=== PATIENT | female | born 1940 | race Caucasian/White ===

== ENCOUNTER 2018-10-20 16:57 | Inpatient (IN) | payer MEDICARE ==
[~2018-10-20] VITALS: Ht 162.6 cm; Wt 63.5 kg
[2018-10-20] MEDS ORDERED: Percocet 5-3251 EACH PO (17:08)
[2018-10-20] MEDS ORDERED: ATOR40TA PO (17:08)
[2018-10-20] MEDS ORDERED: OLME20 PO (17:08)
[2018-10-20] MEDS ORDERED: METO25ER PO (17:08)
[2018-10-20] MEDS ORDERED: GABA100 PO (17:08)
[2018-10-20 18:16] LABS: BASOPHILS ABSOLUTE AUTO 0.04 K/mm3 (0.00-0.23); BASOPHILS PERCENT AUTO 1 % (0-2); EOSINOPHILS ABSOLUTE AUTO 0.22 K/mm3 (0.00-0.68); EOSINOPHILS PERCENT AUTO 3 % (0-6); Hematocrit 30.2 % (33.0-51.0); Hemoglobin 9.6 g/dL (11.5-16.0); IMMATURE GRAN ABSOLUTE AUTO 0.04 K/mm3 (0.00-0.10); IMMATURE GRAN PERCENT AUTO 1 % (0-1); LYMPHOCYTES ABSOLUTE AUTO 0.55 K/mm3 (0.84-5.20); LYMPHOCYTES PERCENT AUTO 7 % (21-46); MONOCYTES ABSOLUTE AUTO 0.67 K/mm3 (0.16-1.47); MONOCYTES PERCENT AUTO 8 % (4-13); Mean Corpuscular HGB 35.3 pg (26.0-34.0); Mean Corpuscular HGB Conc 31.8 g/dL (31.5-36.5); Mean Corpuscular Volume 111 fL (80-100); Mean Platelet Volume 10.3 fL (9.1-12.4); NEUTROPHILS ABSOLUTE AUTO 6.55 K/mm3 (1.96-9.15); NEUTROPHILS PERCENT AUTO 81 % (41-73); Platelet Count 202 K/mm3 (150-400); RDW Coefficient Variation 15.3 % (11.7-14.2); RDW Standard Deviation 62.1 fL (35.1-46.3); Red Blood Cell Count 2.72 M/mm3 (3.80-5.20); White Blood Cell Count 8.07 K/mm3 (4.00-11.30)
[2018-10-20] MEDS ORDERED: Calcium Acetat667 MG PO (18:53)
[2018-10-20] MEDS ORDERED: Aspir 8181 MG PO (18:54)
[2018-10-20 18:55] LABS: Albumin, Blood 3.2 g/dL (3.4-5.0); Albumin/Globulin Ratio 0.9 (0.8-1.8); Bilirubin, Total 0.8 mg/dL (0.1-1.0); Calcium, Blood 9.4 mg/dL (8.5-10.1); Creatinine, Blood 3.72 mg/dL (0.40-1.00); Globulin, Blood 3.5 g/dL (2.2-4.0); Potassium, Blood 4.6 mmol/L (3.5-5.5); Total Protein, Blood 6.7 g/dL (6.4-8.2)
[2018-10-20 22:40] LABS: Source, Urine Catheter
[2018-10-20 22:42] LABS: Bilirubin, Urine Neg (Neg); Blood, Urine Neg (Neg); Glucose Qualitative, Urine Neg (Neg); Ketones, Urine Neg (Neg); Leukocyte Esterase, Urine 1+ (Neg); Nitrite, Urine Neg (Neg); Protein, Urine 3+ (Neg); Specific Gravity, Urine 1.015 (1.003-1.022); Urobilinogen, Urine NORM (Normal)
[2018-10-20 22:47] LABS: Appearance, Urine Clear (Clear); Color, Urine Yellow (P-Yellow)
[2018-10-20 22:49] LABS: Amorphous Light (0-Heavy); Bacteria Rare /hpf; Red Blood Cells, Urine Not Seen /hpf (0-2); Squamous Epithelial Cells Not Seen /hpf (Few)
--- NOTE | 2018-10-21 04:20 | NUR ---
PATIENT ADMITTED AWAKE AND COMPLAINING OF PAIN IN THE LT HIP ONLY WHEN MOVED. UNABLE TO ASSESS PATIENTS POSTERIOR. 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 sHE WAS SCHEDULED TO HAVE A NEW FISTULA IN HER RT ARM TODAY IN [facility], i NOTIFIED THEIR NURSING PRICER TO GET HER OFF OF THEIR SCHEDULE. pERMACATH IN PT'S UPPER RT CHEST WALL. DIALYSIS ON 10/19/18- SUNDAY, HER NORMAL SCHEDULE IS M, W, F. SHE HAS BEEN ON ANTIBIOTICS FOR A SMALL HEALED WOUND ON HER LT 5TH TOE THAT RUBBED ON HER SHOE. LT LOWER EXTREMITY WITH REDDENED/BRIGHT PINK HOT, EDEMATOUS SKIN. PATIENT STATED THAT HER LEG HAS LOOKDED WITH THAT FOR A FEW DAYS. sHE HAS BEEN NPO SINCE MIDNIGHT, EXCEPT FOR ORAL PAIN MEDS AND SIPS OF WATER TO SWALLOW TAB.
[2018-10-21 04:24] LABS: Hematocrit 26.3 % (33.0-51.0); Hemoglobin 8.5 g/dL (11.5-16.0); Mean Corpuscular HGB 35.4 pg (26.0-34.0); Mean Corpuscular HGB Conc 32.3 g/dL (31.5-36.5); Mean Corpuscular Volume 110 fL (80-100); Mean Platelet Volume 10.2 fL (9.1-12.4); Platelet Count 190 K/mm3 (150-400); RDW Coefficient Variation 15.3 % (11.7-14.2); RDW Standard Deviation 62.1 fL (35.1-46.3); White Blood Cell Count 6.56 K/mm3 (4.00-11.30)
[2018-10-21 04:48] LABS: Calcium, Blood 8.9 mg/dL (8.5-10.1); Creatinine, Blood 4.3 mg/dL (0.40-1.00); Potassium, Blood 5.2 mmol/L (3.5-5.5)
--- NOTE | 2018-10-21 08:44 | NUR ---
REDNESS/SWELLING DR. RICHTER NOTIFIED OF REDNESS/SWELLING TO PT'S L ANKLE. HE WAS ALSO NOTIFIED THAT PT HAD A REDDENED AREA ON HER L FIFTH TOE WHICH THE PT REPORTS IS A HEALING SORE. WILL CONTINUE TO MONITOR.
[2018-10-21 09:10] LABS: International Normalized Ratio 1.08; Prothrombin Time Results 11.4 Sec (9.7-11.5)
--- NOTE | 2018-10-21 15:57 | NUR ---
PT LEFT FOR SURGERY VIA BED.
--- NOTE | 2018-10-21 16:37 | NUR ---
per dr. pillai, no need for repeat potassium level proir to surgery.
--- NOTE | 2018-10-21 17:57 | NUR ---
Per admit trigger, I met with Mrs. Mckeon (Lucila) to offer prayer and spiritual support. She lives in [place]. Her last year. She spoke to me at length about this loss and her numerous health problems. She prides herself on her strength. She feels well-supported by friends in her community. Lucial was appreciaitve of theraputic listening, spiritual supervisor counseling and guidance, bereavement supervisor counseling and guidance, and prayer. She is hopeful she will recover well post-op and is willing to do whatever is recommended to get better. Surgery later today. I will remain available.
--- NOTE | 2018-10-21 19:08 | NUR ---
PT ARRIVED TO ROOM VIA BED AT 1835. ORIENTED TO PERSON PLACE TIME EVENT AND LOCATION. PT DROWSY AND FALLING ASLEEP MID SENTENCE. COMPLAINTS OF NAUSEA, ORDERS FOR ZOFRAN RECEIVED AND GIVEN. BP DOWN TO MID 80'S. FLUID BOLUS GIVEN PER DR GATES. CONTINUOUS BIOX ORDERED, AWAITING RESPIRATORY. RESPIRATIONS IN THE 20'S. SURGICAL SITE IS 2 AQUACEL DRESSINGS WITH SMALL AMOUNT OF RED DRAINAGE SEEN ON BANDAGES. ICE PACK IN PLACE ON SURGICAL SITE.
[2018-10-22 04:30] LABS: BASOPHILS ABSOLUTE AUTO 0.01 K/mm3 (0.00-0.23); BASOPHILS PERCENT AUTO 0 % (0-2); EOSINOPHILS PERCENT AUTO 0 % (0-6); Hematocrit 24.4 % (33.0-51.0); Hemoglobin 7.9 g/dL (11.5-16.0); IMMATURE GRAN ABSOLUTE AUTO 0.06 K/mm3 (0.00-0.10); IMMATURE GRAN PERCENT AUTO 1 % (0-1); LYMPHOCYTES ABSOLUTE AUTO 0.28 K/mm3 (0.84-5.20); LYMPHOCYTES PERCENT AUTO 3 % (21-46); MONOCYTES ABSOLUTE AUTO 0.29 K/mm3 (0.16-1.47); MONOCYTES PERCENT AUTO 3 % (4-13); Mean Corpuscular HGB 34.3 pg (26.0-34.0); Mean Corpuscular HGB Conc 32.4 g/dL (31.5-36.5); Mean Platelet Volume 10.6 fL (9.1-12.4); NEUTROPHILS ABSOLUTE AUTO 9.77 K/mm3 (1.96-9.15); NEUTROPHILS PERCENT AUTO 94 % (41-73); Platelet Count 149 K/mm3 (150-400); RDW Standard Deviation 58.6 fL (35.1-46.3); White Blood Cell Count 10.41 K/mm3 (4.00-11.30)
[2018-10-22 04:32] LABS: Mean Corpuscular Volume 106 fL (80-100)
[2018-10-22 04:47] LABS: Albumin, Blood 2.3 g/dL (3.4-5.0); Anion Gap 9 mmol/L (6-16); Blood Urea Nitrogen 26 mg/dL (8-24); Bun/Creatinine Ratio 7.7 (12.0-20.0); CO2, Blood 28 mmol/L (21-32); Calcium, Blood 8.3 mg/dL (8.5-10.1); Chloride, Blood 98 mmol/L (98-108); Creatinine, Blood 3.38 mg/dL (0.40-1.00); Glomerular Filtration Rate 14 (60-); Glucose, Blood 143 mg/dL (70-99); Magnesium, Blood 1.9 mg/dL (1.6-2.4); Phosphorus, Blood 6.1 mg/dL (2.5-4.9); Potassium, Blood 4.8 mmol/L (3.5-5.5); Sodium, Blood 135 mmol/L (136-145)
--- NOTE | 2018-10-22 07:18 | NUR ---
SUMMARY PT VS STABILIZING.CHANGED AQUACELLS FOR BLEEDING THAT TOUCHED 3 SIDES PER ROUTINE. UPPER AQUACELL CURRENTLY HAS SOME BLEEDING NOTED. ICE TO AREA WHICH PT INTERMITTENTLY REMOVES.CIRC CHECKS REMAIN INTACT TO EXT. PT TALKATIVE. REQUESTING MELATONIN AND TYLENOL PM ORDERS FOR TONIGHT SHE TAKES THESE AT HOME.
--- NOTE | 2018-10-22 12:17 | NUR ---
DIALYSIS PLAN TO DIALYZE PT FOR 2.5 HRS AND GIVE 2 UNITS PRBC. COMPLETED THE UNITS OF BLOOD. AFTER PT ON FOR I HOUR AND 39 MINS. THE MACHINE ALARMED "AIR" ALARM. CHECKED THE LINE FOR FOAM, AIR, OR AIR BUBBLES. NONE FOUND. TRIED TO CLEAR. THE ALARM WOULD NOT CLEAR. TRIED TO USE SALINE TO CLEAR THE LINE BUT WOULD NOT CLEAR. SO I COULD PUT SALINE THROUGH. USED SALINE SYRINGES TO NO AVAIL. USED A SYRINGE TO PULL BLOOD OUT (AND HOPEFULLY ANY AIR). DIDNT WORK. GAVE THE BLOOD BACK IN PRIME. THE ALARM NEVER CLEARED AT ALL.
--- NOTE | 2018-10-22 13:58 | NUR ---
DR. RICHTER ROUNDED ON PT. NOTIFIED THAT POST OP ANTIBIOTIC WAS GIVEN PRIOR TO DIALYSIS; NO NEW ANTIBIOTIC ORDERS AT THIS TIME. NOTIFIED THAT HIP DRESSINGS HAVE SATURATED X2 AND HAVE REQUIRED CHANGING. WILL CONTINUE TO MONITOR.
--- NOTE | 2018-10-22 16:41 | NUR ---
SHIFT SUMMARY POD1 L FEMORAL NECK REPAIR. PATIENT ALERT AND ORIENTED X4. PLEASENT AFFECT. PT UP TO CHAIR WITH THERAPY TOLERATING WELL, MINIMAL COMPLAINTS OF PAIN. MANAGED PER DILCIA MENDEZ X1 DURING SHIFT. AQUACEL DRESSING CHANGED DURING SHIFT PER MODERATE RED DRAINAGE ON BOTH. PEÑA REMOVED AT APPROX 1630 AND BOWEL MOVEMENT REPORTED. WILL MONITOR PATIENT FOR URINARY OUTPUT AND ENCOURAGE FLUID INTAKE. DIALYSIS PERFORMED IN ROOM AND 2 UNITS OF BLOOD GIVEN DURING DIALYSIS.
[2018-10-23 04:05] LABS: BASOPHILS ABSOLUTE AUTO 0.03 K/mm3 (0.00-0.23); BASOPHILS PERCENT AUTO 0 % (0-2); EOSINOPHILS ABSOLUTE AUTO 0.13 K/mm3 (0.00-0.68); EOSINOPHILS PERCENT AUTO 1 % (0-6); Hematocrit 26.7 % (33.0-51.0); Hemoglobin 8.8 g/dL (11.5-16.0); IMMATURE GRAN ABSOLUTE AUTO 0.04 K/mm3 (0.00-0.10); IMMATURE GRAN PERCENT AUTO 0 % (0-1); LYMPHOCYTES ABSOLUTE AUTO 0.59 K/mm3 (0.84-5.20); LYMPHOCYTES PERCENT AUTO 6 % (21-46); MONOCYTES ABSOLUTE AUTO 0.95 K/mm3 (0.16-1.47); MONOCYTES PERCENT AUTO 10 % (4-13); Mean Corpuscular HGB 33.1 pg (26.0-34.0); Mean Platelet Volume 10.6 fL (9.1-12.4); NEUTROPHILS ABSOLUTE AUTO 7.74 K/mm3 (1.96-9.15); NEUTROPHILS PERCENT AUTO 82 % (41-73); Platelet Count 144 K/mm3 (150-400); RDW Coefficient Variation 18.8 % (11.7-14.2); RDW Standard Deviation 69.1 fL (35.1-46.3); Red Blood Cell Count 2.66 M/mm3 (3.80-5.20); White Blood Cell Count 9.48 K/mm3 (4.00-11.30)
[2018-10-23 04:09] LABS: Mean Corpuscular Volume 100 fL (80-100)
[2018-10-23 04:24] LABS: Albumin, Blood 2.5 g/dL (3.4-5.0); Anion Gap 4 mmol/L (6-16); Blood Urea Nitrogen 32 mg/dL (8-24); Bun/Creatinine Ratio 10.5 (12.0-20.0); CO2, Blood 33 mmol/L (21-32); Calcium, Blood 8.7 mg/dL (8.5-10.1); Chloride, Blood 96 mmol/L (98-108); Creatinine, Blood 3.05 mg/dL (0.40-1.00); Glomerular Filtration Rate 16 (60-); Glucose, Blood 115 mg/dL (70-99); Phosphorus, Blood 4.8 mg/dL (2.5-4.9); Potassium, Blood 4.5 mmol/L (3.5-5.5); Sodium, Blood 133 mmol/L (136-145)
--- NOTE | 2018-10-23 07:09 | NUR ---
SUMMARY PT REPORTS SLEPT WELL. VOIDING.REPOSITIONING WITH ASSIST.
--- NOTE | 2018-10-23 07:55 | NUR ---
meds given with food offered pain meds pt declined at this time pt has small amt of drainage to her aquacel dressing to l hip x2 nickel size want to talk with dr lorenz about holding pt heparin pt to have dialysis at 0900 poss transfusion this am
--- NOTE | 2018-10-23 09:00 | NUR ---
PT TRANSPORTED TO DIALYSIS VIA BED EARLIER ASSISTED OOB WITH FWW TO VOID
[2018-10-23] MEDS ORDERED: ACETAMINOPHEN-1 EACH PO (11:26)
[2018-10-23] MEDS ORDERED: MELA3 PO (11:27)
[2018-10-23] MEDS ORDERED: MIRALAX17 GM PO (11:36)
--- NOTE | 2018-10-23 11:49 | NUR ---
PT STILL AT DIALYSIS DR GATES PLACED FACILITY DISCHARGE IF OK WITH ORTHO
--- NOTE | 2018-10-23 12:15 | NUR ---
PT BACK FROM DIALYSIS PHYSICAL THERAPY AT BEDSIDE
--- NOTE | 2018-10-23 14:30 | NUR ---
pt req pain meds 2 tab po norco given
--- NOTE | 2018-10-23 15:08 | NUR ---
ss by to see pt re insurance
--- NOTE | 2018-10-23 17:36 | NUR ---
meds given with dinner pt sitting up in chair
[2018-10-24 04:31] LABS: Hemoglobin 10.1 g/dL (11.5-16.0)
[2018-10-24 04:49] LABS: Albumin, Blood 2.6 g/dL (3.4-5.0); Anion Gap 3 mmol/L (6-16); Blood Urea Nitrogen 27 mg/dL (8-24); Bun/Creatinine Ratio 9.8 (12.0-20.0); CO2, Blood 35 mmol/L (21-32); Calcium, Blood 8.9 mg/dL (8.5-10.1); Chloride, Blood 94 mmol/L (98-108); Creatinine, Blood 2.76 mg/dL (0.40-1.00); Glomerular Filtration Rate 18 (60-); Glucose, Blood 98 mg/dL (70-99); Magnesium, Blood 2.1 mg/dL (1.6-2.4); Phosphorus, Blood 2.8 mg/dL (2.5-4.9); Potassium, Blood 4.4 mmol/L (3.5-5.5); Sodium, Blood 132 mmol/L (136-145)
--- NOTE | 2018-10-24 06:20 | NUR ---
Patient alert and oriented x4. Vital signs table. Afebrile. Voiding freely. Up to bedside commode with One assist and walker. Seen by Dr. Lynn. COmplaints of pain to left hip. Dressing to left hip intact with shadowing present. Slept comfortably throughout the night.
--- NOTE | 2018-10-24 11:04 | NUR ---
REPORT CALLED TO CROW TALLEY AT [facility] IN [place] [ ] AT THIS TIME.
--- NOTE | 2018-10-24 15:32 | NUR ---
10/24/18 1532 Verna Leong VERIFICATIONS: EDIT CHART.
== END 2018-10-24 09:15 | DRG 480 ==
LOC: ER 16:57 → SURS 19:24
PROVIDERS: Emergency Medicine; Internal Medicine Nephrology; Orthopaedic Surgery; ADMIT Internal Medicine
PROC: 5A1D70Z Performance of Urinary Filtration, Intermittent, Less than 6 Hours Per Day (ICD-10-PCS; 2018-10-21)
PROC: 30233N1 Transfusion of Nonautologous Red Blood Cells into Peripheral Vein, Percutaneous Approach (ICD-10-PCS; 2018-10-21)
PROC: 0QH706Z Insertion of Intramedullary Internal Fixation Device into Left Upper Femur, Open Approach (ICD-10-PCS; principal; 2018-10-21 18:30)
DX: S72.142A Displaced intertrochanteric fracture of left femur, initial encounter for closed fracture (principal); N18.6 End stage renal disease; I12.0 Hypertensive chronic kidney disease with stage 5 chronic kidney disease or end stage renal disease; E87.1 Hypo-osmolality and hyponatremia; Z99.2 Dependence on renal dialysis; E87.5 Hyperkalemia; E86.9 Volume depletion, unspecified; G62.9 Polyneuropathy, unspecified; W19.XXXA Unspecified fall, initial encounter; E78.5 Hyperlipidemia, unspecified; G47.00 Insomnia, unspecified; Z95.1 Presence of aortocoronary bypass graft; Z95.2 Presence of prosthetic heart valve; I25.10 Atherosclerotic heart disease of native coronary artery without angina pectoris; D63.1 Anemia in chronic kidney disease; E87.70 Fluid overload, unspecified
CPT/HCPCS: 36415; 36430; 71045; 73502; 73700; 80048; 80053; 80069; 81001; 83735; 85014; 85018; 85025; 85027; 85610; 85730; 86850; 86900; 86901; 86920; 86923; 87086; 93005; 93010; 94762; 96374; 97110; 97162; 97166; 97535; 99285-25; A9270-GY; C1713; C1769; J0690; J0881; J1100; J1644; J2370; J2405; J2704; J3010; J7030; P9016; Q0163